=== PATIENT | female | born 1990 | race Caucasian/White ===

== ENCOUNTER 2020-12-19 04:33 | Emergency (ER) | payer OTHER ==
[~2020-12-19] VITALS: Ht 154.9 cm; Wt 58.2 kg
[2020-12-19] MEDS ORDERED: ISOVUE-370 76% 100ML VIAL As Ordered ONE (04:59)
[2020-12-19] MEDS ORDERED: ONDANSETRON 4MG/2ML VIAL IV ONE (05:05)
[2020-12-19] MEDS ORDERED: MORPHINE 4 MG/ML 1ML VIAL/SYRINGE (J2270) IV ONE (05:05)
[2020-12-19 05:40] LABS: BASO % 0.2 % (0.0-1.0); EOS % 0.2 % (0.0-3.0); HEMATOCRIT 41.9 % (36.0-47.0); HEMOGLOBIN 13.8 g/dl (12.0-15.5); LYMPH # 2.3 10^3/uL (1.5-5.0); LYMPH % 17.5 % (24.0-44.0); MEAN CORPUSCULAR HEMOGLOBIN 31.2 pg (27.0-33.0); MEAN CORPUSCULAR HGB CONC 32.9 g/dl (32.0-36.5); MEAN CORPUSCULAR VOLUME 94.6 fl (80.0-96.0); MONO # 0.9 10^3/uL (0.0-0.8); MONO % 6.4 % (2.0-8.0); NEUTROPHILS % 75.4 % (36.0-66.0); PLATELET COUNT, AUTOMATED 196 10^3/uL (150-450); RED BLOOD COUNT 4.43 10^6/uL (4.00-5.40); WHITE BLOOD COUNT 13.2 10^3/uL (4.0-10.0)
[2020-12-19 06:04] LABS: ALT/SGPT 19 U/L (12-78); BILIRUBIN,DIRECT < 0.1 MG/DL (0.0-0.2); BILIRUBIN,TOTAL 0.3 MG/DL (0.2-1.0); LIPASE 49 U/L (73-393); TOTAL PROTEIN 7.3 GM/DL (6.4-8.2)
[2020-12-19] MEDS ORDERED: SIMETHICONE 80MG CHEW TAB PO ONE (06:25)
[2020-12-19 06:43] LABS: RSV AMPLIFICATION NEGATIVE (NEGATIVE)
--- NOTE | 2020-12-19 08:03 | REPVR ---
PROCEDURE INFORMATION: Exam: CT Abdomen And Pelvis With Contrast Exam date and time: 12/19/2020 4:53 AM Age: 30 years old Clinical indication: Abdominal pain; Generalized; Prior surgery; Surgery date: 3-7 days post-operative; Surgery type: Lap; Additional info: Recent ex lap, generalized abd pain, eval for perf TECHNIQUE: Imaging protocol: Computed tomography of the abdomen and pelvis with contrast. Radiation optimization: All CT scans at this facility use at least one of these dose optimization techniques: automated exposure control; mA and/or kV adjustment per patient size (includes targeted exams where dose is matched to clinical indication); or iterative reconstruction. Contrast material: ISO; Contrast volume: 100 ml; Contrast route: INTRAVENOUS (IV); COMPARISON: No relevant prior studies available. FINDINGS: Lungs: The visualized lung bases demonstrate mild dependent atelectasis. Liver: Normal. No mass. Gallbladder and bile ducts: No gallstones are evident, but ultrasound would be more sensitive. No gross biliary ductal dilatation. Pancreas: Normal. No ductal dilation. Spleen: Normal. No splenomegaly. Adrenal glands: Normal. No mass. Kidneys and ureters: Normal. No hydronephrosis. Stomach and bowel: The unopacified small bowel is not significantly distended to suggest obstruction. There is probably mild wall thickening of the rectosigmoid. The large bowel is otherwise grossly unremarkable in appearance. Appendix: There appear to be surgical sutures associated with prior appendectomy. Intraperitoneal space: There is small pneumoperitoneum about much of the abdomen and pelvis. Small free fluid is present in the pelvis. No walled-off collection to suggest abscess is evident. Vasculature: Unremarkable. No abdominal aortic aneurysm. Lymph nodes: Unremarkable. No enlarged lymph nodes. Urinary bladder: Unremarkable. Reproductive: No gross adnexal abnormality is apparent, but ultrasound would be more appropriate in this regard. Bones/joints: Degenerative changes involve the spine. Soft tissues: There is gas in the soft tissues of the left anterior abdominal and pelvic wall, including the subcutaneous soft tissues and between the musculature. A small fat containing umbilical hernia is present. IMPRESSION: 1. Recently postoperative abdomen with small pneumoperitoneum about much of the abdomen and pelvis, small fluid in the pelvis, and gas in the soft tissues of the left anterior abdominal and pelvic wall. Pneumoperitoneum may be residual from the surgery given the time frame, and new perforation would be difficult to evaluate for in this setting. Correlation regarding indication for surgery would be of benefit. 2. Probable mild wall thickening of the rectosigmoid, suggesting a nonspecific proctocolitis. Electronically signed by: Kemar Scott On 12/19/2020 08:03:01 AM
[2020-12-19] MEDS ORDERED: SIME180C25 PO (08:36)
[2020-12-19 08:50] VITALS: BP 95/60
--- NOTE | 2020-12-19 15:06 | ECGEPIP ---
[facility] [place] - ED Test Date: 2020-12-19 Pat Name: BARON SUN Department: Room: - Gender: Female Key Cutter: HARINI : 1990 Requested By: JUANCARLOS Michele Order Number: [id number] Reading MD: Bernardino Houston Measurements Intervals [place] Rate: 56 P: 33 DC: 112 QRS: 60 QRSD: 84 T: 52 QT: 404 QTc: 389 Interpretive Statements Sinus bradycardia NSTTW ABNORMALITY(S) NO PRIORS FOR COMPARISON Electronically Signed on 12-19-2020 15:06:22 EDT by Bernardino Houston
== END 2020-12-19 08:53 | disposition home or self-care (01) ==
LOC: M ED 04:33
DX: M25.511 Pain in right shoulder (principal); Z98.890 Other specified postprocedural states; F33.9 Major depressive disorder, recurrent, unspecified; F41.9 Anxiety disorder, unspecified; Z88.8 Allergy status to other drugs, medicaments and biological substances; Z77.098 Contact with and (suspected) exposure to other hazardous, chiefly nonmedicinal, chemicals; F12.20 Cannabis dependence, uncomplicated
CPT/HCPCS: 74177; 80047; 80076; 83690; 84702; 85025; 87631; 93005; 93041; 96374; 96375; 99285; J2270; J2405; Q9967

== ENCOUNTER 2021-10-25 09:50 | Outpatient (CLI) | payer OTHER ==
[~2021-10-25] VITALS: Ht 157.5 cm; Wt 67.6 kg
[~2021-10-25 09:50] MED LIST: SIME180C25 PO
[2021-10-25] MEDS ORDERED: PRENTAB9 PO (10:09)
[2021-10-25] MEDS ORDERED: VITA100093 PO (10:09)
[2021-10-25] MEDS ORDERED: HOME MED LIST COMPLETE! XX SCH (10:10)
[2021-10-25 11:02] VITALS: BP 109/64
[2021-10-25 12:25] VITALS: BP 100/53
[2021-10-25] MEDS ORDERED: CEPH500T PO (12:36)
== END 2021-10-25 12:37 | disposition home or self-care (01) ==
LOC: M LDO 09:50
PROVIDERS: ATTEND Specialist
DX: O26.892 Other specified pregnancy related conditions, second trimester (principal); R10.2 Pelvic and perineal pain; O23.42 Unspecified infection of urinary tract in pregnancy, second trimester; Z98.870 Personal history of in utero procedure during pregnancy; Z3A.27 27 weeks gestation of pregnancy
CPT/HCPCS: 59025; 81001; 87088; 87186; 87426; G0378; G0463

== ENCOUNTER 2021-11-17 09:17 | Emergency (ER) | payer OTHER ==
[~2021-11-17] VITALS: Ht 154.9 cm; Wt 67.3 kg
[~2021-11-17 09:17] MED LIST changes: +CEPH500T PO; +PRENTAB9 PO; +VITA100093 PO
[2021-11-17] MEDS ORDERED: ACET-683 PO (09:31)
[2021-11-17 10:28] LABS: HEMOGLOBIN 10.7 g/dl (12.0-15.5); MEAN CORPUSCULAR HEMOGLOBIN 33.1 pg (27.0-33.0); MEAN CORPUSCULAR HGB CONC 34.5 g/dl (32.0-36.5); PLATELET COUNT, AUTOMATED 130 10^3/uL (150-450); RED BLOOD COUNT 3.23 10^6/uL (4.00-5.40); WHITE BLOOD COUNT 4.9 10^3/uL (4.0-10.0)
[2021-11-17 10:48] LABS: BLOOD UREA NITROGEN 7 MG/DL (7-18); CALCIUM LEVEL 8.7 MG/DL (8.5-10.1); CARBON DIOXIDE LEVEL 20 MEQ/L (21-32); CHLORIDE LEVEL 110 MEQ/L (98-107); CREATININE FOR GFR 0.54 MG/DL (0.55-1.30); GLOMERULAR FILTRATION RATE > 60.0 (>60); GLUCOSE, FASTING 77 MG/DL (70-100); SODIUM LEVEL 140 MEQ/L (136-145)
[2021-11-17] MEDS ORDERED: NIRM1TAB PO (12:56)
[2021-11-17 13:16] VITALS: BP 100/60
== END 2021-11-17 13:19 | disposition home or self-care (01) ==
LOC: M ED 09:17
DX: O98.513 Other viral diseases complicating pregnancy, third trimester (principal); U07.1 COVID-19; Z3A.30 30 weeks gestation of pregnancy; Z88.6 Allergy status to analgesic agent; Z88.8 Allergy status to other drugs, medicaments and biological substances; Z79.899 Other long term (current) drug therapy

== ENCOUNTER 2021-12-17 08:19 | Emergency (ER) | payer OTHER ==
[~2021-12-17] VITALS: Ht 154.9 cm; Wt 70.1 kg
[2021-12-17 08:19] VITALS: BP 111/63
[~2021-12-17 08:19] MED LIST changes: +ACET-683 PO; +NIRM1TAB PO
== END 2021-12-17 08:55 | disposition left against medical advice (07) ==
LOC: M ED 08:19
DX: Z53.21 Procedure and treatment not carried out due to patient leaving prior to being seen by health care provider (principal)

== ENCOUNTER 2021-12-17 08:59 | Outpatient (CLI) | payer OTHER ==
[~2021-12-17] VITALS: Ht 162.6 cm; Wt 69.0 kg
[2021-12-17 09:25] VITALS: BP 101/66
[2021-12-17] MEDS ORDERED: HOME MED LIST COMPLETE! XX SCH (11:30)
[2021-12-17 12:11] VITALS: BP 103/59
[2021-12-17] MEDS ORDERED: PIPERACILLIN/TAZOBACTAM SOD 4.5 GM in D5W MINI-BAG PLUS 50 ML IV ONE (13:00)
[2021-12-17] MEDS ORDERED: LR 1,000 ML IV ONE (13:00)
== END 2021-12-17 15:30 | disposition home or self-care (01) ==
LOC: M LDO 08:59
PROVIDERS: ATTEND Obstetrics & Gynecology
DX: O23.43 Unspecified infection of urinary tract in pregnancy, third trimester (principal); Z3A.34 34 weeks gestation of pregnancy; Z88.6 Allergy status to analgesic agent; Z88.8 Allergy status to other drugs, medicaments and biological substances
CPT/HCPCS: 59025; 81001; 87088; 87186; G0463; J2543

== ENCOUNTER → 2022-01-10 | Outpatient (CLI) | payer OTHER ==
[~2022-01-10] MED LIST changes: +ACET500P3 PO
== END ==
LOC: M RAD 09:13
PROVIDERS: ATTEND Registered Nurse
DX: O36.8330 Maternal care for abnormalities of the fetal heart rate or rhythm, third trimester, not applicable or unspecified (principal); Z3A.38 38 weeks gestation of pregnancy

== ENCOUNTER 2022-01-13 13:57 | Outpatient (CLI) | payer OTHER ==
[~2022-01-13] VITALS: Ht 154.9 cm; Wt 72.3 kg
[~2022-01-13 13:57] MED LIST changes: -ACET500P3 PO
[2022-01-13 14:12] VITALS: BP 104/70
[2022-01-13 14:24] LABS: BILIRUBIN, URINE MANUAL NEGATIVE (NEGATIVE); GLUCOSE, URINE (UA) MANUAL NEGATIVE (NEGATIVE); KETONE, URINE MANUAL NEGATIVE (NEGATIVE); UROBILINOGEN, URINE MANUAL NORMAL (NORMAL)
[2022-01-13 14:27] LABS: HEMATOCRIT 31.4 % (36.0-47.0); HEMOGLOBIN 10.8 g/dl (12.0-15.5); MEAN CORPUSCULAR HEMOGLOBIN 33.2 pg (27.0-33.0); MEAN CORPUSCULAR HGB CONC 34.4 g/dl (32.0-36.5); MEAN CORPUSCULAR VOLUME 96.6 fl (80.0-96.0); PLATELET COUNT, AUTOMATED 190 10^3/uL (150-450); RED BLOOD COUNT 3.25 10^6/uL (4.00-5.40)
[2022-01-13] MEDS ORDERED: ACET500P3 PO (14:29)
[2022-01-13 14:30] LABS: BACTERIA, URINE MOD AMOUNT; HYALINE CAST, URINE NONE SEEN /lpf (0-1); RBC, URINE 0-1 /hpf (0-3); SQUAMOUS EPITHELIAL CELL URINE LARGE AMOUNT /hpf (SMALL AMT)
[2022-01-13] MEDS ORDERED: HOME MED LIST COMPLETE! XX SCH (14:30)
[2022-01-13 14:31] LABS: MUCUS, URINE SMALL AMOUNT (NEGATIVE)
[2022-01-13] MEDS ORDERED: diphenhydrAMINE 25MG CAP PO ONE (15:00)
[2022-01-13] MEDS ORDERED: METOCLOPRAMIDE 10MG TAB PO ONE (15:00)
[2022-01-13 15:04] VITALS: BP 114/69
[2022-01-13 15:05] VITALS: BP 103/63
[2022-01-13 15:05] LABS: CREATININE,RANDOM URINE 20.9 MG/DL; TOTAL PROTEIN,RANDOM URINE 10.2 MG/DL (0.0-12.0)
[2022-01-13 15:06] VITALS: BP 105/68
[2022-01-13 15:07] LABS: ALBUMIN 2.7 GM/DL (3.2-5.2); ALT/SGPT 23 U/L (12-78); BILIRUBIN,TOTAL 0.3 MG/DL (0.2-1.0); BLOOD UREA NITROGEN 8 MG/DL (7-18); CALCIUM LEVEL 8.9 MG/DL (8.5-10.1); CARBON DIOXIDE LEVEL 24 MEQ/L (21-32); CHLORIDE LEVEL 108 MEQ/L (98-107); CREATININE FOR GFR 0.63 MG/DL (0.55-1.30); GLOMERULAR FILTRATION RATE > 60.0 (>60); GLUCOSE, FASTING 92 MG/DL (70-100); LDH LACTATE DEHYDROGENASE 173 U/L (84-246); SODIUM LEVEL 138 MEQ/L (136-145); TOTAL PROTEIN 6.6 GM/DL (6.4-8.2)
== END 2022-01-13 15:55 | disposition home or self-care (01) ==
LOC: M LDO 13:57
PROVIDERS: ATTEND Obstetrics & Gynecology
DX: O26.893 Other specified pregnancy related conditions, third trimester (principal); R51.9 Headache, unspecified; Z98.870 Personal history of in utero procedure during pregnancy; Z3A.38 38 weeks gestation of pregnancy; Z86.16 Personal history of COVID-19
CPT/HCPCS: 36415; 59025; 76815; 80053; 81000; 81015; 82570; 83615; 84156; 85027; 87086; G0463

== ENCOUNTER 2022-01-25 18:19 | Inpatient (IN) | payer OTHER ==
[~2022-01-25] VITALS: Ht 154.9 cm; Wt 73.2 kg
[~2022-01-25 18:19] MED LIST changes: +ACET500P3 PO
[2022-01-25 18:39] VITALS: BP 100/69
[2022-01-25] MEDS ORDERED: HOME MED LIST COMPLETE! XX SCH (18:45)
[2022-01-25 20:05] VITALS: BP 95/54
[2022-01-25] MEDS ORDERED: OXYTOCIN INJ 10 UNITS/ML VIAL (J2590) IV PRN (20:45)
[2022-01-25] MEDS ORDERED: OXYTOCIN DRIP 30 UNITS in IV 1 EA IV PRN ×4 (20:45)
[2022-01-25] MEDS ORDERED: METHYLERGONOVINE MALEATE 0.2 MG/ML VIAL (J2210) IM PRN (20:45)
[2022-01-25] MEDS ORDERED: LACTATED RINGER'S 1000 ML IV ONE (20:45)
[2022-01-25] MEDS ORDERED: TRANEXAMIC ACID INJection 1,000 MG in NS 100 ML IV PRN (20:45)
[2022-01-25] MEDS ORDERED: miSOPROStol 50MCG 1/2 TABLET PO ONE (20:45)
[2022-01-25 21:16] VITALS: BP 99/58
[2022-01-25 21:29] LABS: HEMATOCRIT 31.7 % (36.0-47.0); HEMOGLOBIN 10.6 g/dl (12.0-15.5); MEAN CORPUSCULAR HEMOGLOBIN 32.5 pg (27.0-33.0); MEAN CORPUSCULAR HGB CONC 33.4 g/dl (32.0-36.5); MEAN CORPUSCULAR VOLUME 97.2 fl (80.0-96.0); PLATELET COUNT, AUTOMATED 204 10^3/uL (150-450); RED BLOOD COUNT 3.26 10^6/uL (4.00-5.40); WHITE BLOOD COUNT 8.9 10^3/uL (4.0-10.0)
[2022-01-25 23:06] VITALS: BP 90/53
[2022-01-26] VITALS (44 sets, daily range): BP systolic 64–133; BP diastolic 38–70
[2022-01-26] MEDS ORDERED: ONDANSETRON 4MG 2ML VIAL IV PRN (03:10)
[2022-01-26] MEDS ORDERED: EPIDURAL/PCA KEYS XX PRN (03:10)
[2022-01-26] MEDS ORDERED: LR 500 ML IV PRN (03:10)
[2022-01-26] MEDS ORDERED: NALOXONE INJ 0.4MG/1ML VIAL (J2310 PER 1MG) IV PRN (03:10)
[2022-01-26] MEDS ORDERED: diphenhydrAMINE 50MG/ML VIAL (J1200) IV PRN (03:10)
[2022-01-26] MEDS: FENTANYL/ROPIVACAINE/NACL BAG 100 ML EPIDURAL SCH ×2 (04:19→14:35)
[2022-01-26] MEDS ORDERED: ACETAMINOPHEN TAB 650MG DOSE (2X325MG) PO PRN (04:50)
[2022-01-26] MEDS: LR 1,000 ML IV SCH ×3 (07:26→14:38)
[2022-01-26] MEDS: ePHEDrine SULFATE 25 MG/5 ML(5MG/ML) SYRINGE IVP PRN ×3 (08:33→21:02)
[2022-01-26] MEDS ORDERED: OXYTOCIN DRIP 30 UNITS in IV 1 EA IV SCH (09:00)
[2022-01-26] MEDS ORDERED: METOCLOPRAMIDE INJ 10MG/2ML VIAL (J2765 PER 1) IV ONE (09:15)
[2022-01-26] MEDS ORDERED: ePHEDrine SULFATE 25 MG/5 ML(5MG/ML) SYRINGE IVP PRN (10:20)
[2022-01-27] VITALS (18 sets, daily range): BP systolic 90–138; BP diastolic 48–66
[2022-01-27] MEDS ORDERED: ceFAZolin SOD 2 GM in IV 1 EA IV ONE ×2
[2022-01-27] MEDS ORDERED: AZITHROMYCIN INJ 500 MG, VIAL MATE ADAPTER 1 EACH in NS 250 ML IV ONE ×3
[2022-01-27] MEDS ORDERED: BICITRA 30ML SOLN UDC PO ONE
[2022-01-27] MEDS ORDERED: OXYTOCIN INJ 10 UNITS/ML VIAL (J2590) As Ordered ONE (00:03)
[2022-01-27] MEDS ORDERED: dexameTHASONE 4 MG/ML 1ML VIAL (J1100 PER 1MG) As Ordered ONE ×2 (00:03→01:08)
[2022-01-27] MEDS ORDERED: ONDANSETRON 4MG 2ML VIAL As Ordered ONE (00:03)
[2022-01-27] MEDS ORDERED: LIDOCAINE 2% W/EPINEPHRINE 20ML VIAL **PRES FREE As Ordered ONE (00:03)
[2022-01-27] MEDS ORDERED: KETOROLAC 60MG 2ML VIAL As Ordered ONE (00:03)
[2022-01-27] MEDS ORDERED: MORPHINE PRES-FREE INJ 10 MG/10 ML VIAL As Ordered ONE (00:04)
[2022-01-27] MEDS ORDERED: METOCLOPRAMIDE INJ 10MG/2ML VIAL (J2765 PER 1) As Ordered ONE (00:53)
[2022-01-27 00:59] LABS: CORD GAS ABE V -5.3; CORD GAS HCO3 V 21.3 MEQ/L; CORD GAS PCO2 V 45.7 mmHg; CORD GAS PH V 7.287 UNITS; CORD GAS PO2 V 28.7 mmHg; CORD GAS SBC V 19.4 MEQ/L; CORD GAS TCO2 V 22.7 MEQ/L
[2022-01-27] MEDS ORDERED: BUPIVACAINE/EPIN 0.25% 30 ML VIAL As Ordered ONE (00:59)
[2022-01-27] MEDS ORDERED: ePHEDrine SULFATE 25 MG/5 ML(5MG/ML) SYRINGE As Ordered ONE (01:03)
[2022-01-27] MEDS ORDERED: diphenhydrAMINE 50MG/ML VIAL (J1200) As Ordered ONE (01:08)
[2022-01-27] MEDS ORDERED: METOCLOPRAMIDE INJ 10MG/2ML VIAL (J2765 PER 1) IV PRN ×2 (01:15→02:35)
[2022-01-27] MEDS ORDERED: SIMETHICONE 80MG CHEW TAB PO PRN (01:15)
[2022-01-27] MEDS ORDERED: RHOGAM 300 MCG (1500 IU) INJ (J2790) IM SCH (01:15)
[2022-01-27] MEDS ORDERED: MOM 30ML SUSPENSION UDC PO PRN (01:15)
[2022-01-27] MEDS ORDERED: oxyCODONE 5MG TAB PO PRN (02:35)
[2022-01-27] MEDS: SLF 3 ML SYR IV SCH ×3 (02:35→18:35)
[2022-01-27] MEDS ORDERED: ONDANSETRON 4MG 2ML VIAL IV PRN (02:35)
[2022-01-27] MEDS ORDERED: diphenhydrAMINE 50MG/ML VIAL (J1200) IV PRN (02:35)
[2022-01-27] MEDS ORDERED: fentaNYL 100 MCG/2 ML INJECTION IV PRN (02:35)
[2022-01-27] MEDS ORDERED: **NOTE PATIENT COMMENT** MISC XX SCH (02:35)
[2022-01-27] MEDS: LR 1,000 ML IV SCH ×2 (02:35→03:05)
[2022-01-27] MEDS ORDERED: NALOXONE INJ 0.4MG/1ML VIAL (J2310 PER 1MG) IV PRN ×2 (02:35)
[2022-01-27] MEDS ORDERED: MORPHINE 2 MG/ML 1ML VIAL IV PRN (02:35)
[2022-01-27] MEDS ORDERED: oxyCODONE 5MG TAB As Ordered ONE (02:39)
[2022-01-27] MEDS: oxyCODONE 5MG TAB PO PRN ×2 (02:40→21:31)
[2022-01-27] MEDS: PRENATAL VITAMINS CHEWABLE TABLET PO SCH (08:36)
[2022-01-27] MEDS: DOCUSATE SODIUM 100MG CAPSULE PO SCH ×2 (08:36→21:31)
[2022-01-27] MEDS: KETOROLAC 30 MG/ML 1ML VIAL IV SCH ×3 (08:37→18:36)
[2022-01-27] MEDS ORDERED: PRENATAL VITAMINS CHEWABLE TABLET PO SCH (09:00)
[2022-01-27] MEDS: VITAMIN D 1,000 INTERNATIONAL UNITS TABLET PO SCH (16:17)
[2022-01-27] MEDS: IBUPROFEN 800 MG TAB PO SCH (23:39)
[2022-01-28] VITALS (7 sets, daily range): BP systolic 89–117; BP diastolic 52–67
[2022-01-28] MEDS: ACETAMINOPHEN 500 MG TAB PO PRN ×2 (02:19→12:38)
[2022-01-28] MEDS: oxyCODONE 5MG TAB PO PRN ×2 (05:22→18:57)
[2022-01-28 06:38] LABS: HEMATOCRIT 25.4 % (36.0-47.0); HEMOGLOBIN 8.2 g/dl (12.0-15.5); MEAN CORPUSCULAR HEMOGLOBIN 32.2 pg (27.0-33.0); MEAN CORPUSCULAR HGB CONC 32.3 g/dl (32.0-36.5); MEAN CORPUSCULAR VOLUME 99.6 fl (80.0-96.0); PLATELET COUNT, AUTOMATED 166 10^3/uL (150-450); RED BLOOD COUNT 2.55 10^6/uL (4.00-5.40); WHITE BLOOD COUNT 9.8 10^3/uL (4.0-10.0)
[2022-01-28] MEDS: VITAMIN D 1,000 INTERNATIONAL UNITS TABLET PO SCH (08:53)
[2022-01-28] MEDS: PRENATAL VITAMINS CHEWABLE TABLET PO SCH (08:53)
[2022-01-28] MEDS: IBUPROFEN 800 MG TAB PO SCH ×2 (08:53→17:07)
[2022-01-28] MEDS: DOCUSATE SODIUM 100MG CAPSULE PO SCH ×2 (08:53→21:25)
[2022-01-29] MEDS: IBUPROFEN 800 MG TAB PO SCH ×2 (00:16→08:07)
[2022-01-29 02:00] VITALS: BP 99/52
[2022-01-29 06:00] VITALS: BP 116/62
[2022-01-29] MEDS: VITAMIN D 1,000 INTERNATIONAL UNITS TABLET PO SCH (08:06)
[2022-01-29] MEDS: DOCUSATE SODIUM 100MG CAPSULE PO SCH (08:06)
[2022-01-29] MEDS: PRENATAL VITAMINS CHEWABLE TABLET PO SCH (08:06)
[2022-01-29] MEDS: oxyCODONE 5MG TAB PO PRN (08:15)
[2022-01-29] MEDS ORDERED: MEASLES,MUMPS,RUBELLA VACCINE INJ (MMR-II) (90707) SC.IMMUN ONE (09:00)
[2022-01-29 10:00] VITALS: BP 120/57
[2022-01-29] MEDS ORDERED: PRENCHW PO (11:03)
[2022-01-29] MEDS ORDERED: IBUP80TA PO (11:03)
[2022-01-29] MEDS ORDERED: COLA100C5 PO (11:03)
[2022-01-29] MEDS ORDERED: OXYC-517 PO (11:03)
== END 2022-01-29 11:44 | disposition home or self-care (01) | DRG 773 ==
LOC: M LDI 18:19 → M OBS 01-27 02:49
PROVIDERS: ADMIT Obstetrics & Gynecology; ATTEND Obstetrics & Gynecology
PROC: 3E033VJ Introduction of Other Hormone into Peripheral Vein, Percutaneous Approach (ICD-10-PCS; 2022-01-25)
PROC: 10D00Z1 Extraction of Products of Conception, Low, Open Approach (ICD-10-PCS; principal; 2022-01-27 00:20)
DX: O76 Abnormality in fetal heart rate and rhythm complicating labor and delivery (principal); Z3A.40 40 weeks gestation of pregnancy; Z37.0 Single live birth

== ENCOUNTER → 2022-03-18 | Outpatient (REF) | payer OTHER ==
[~2022-03-18] MED LIST changes: +COLA100C5 PO; +IBUP80TA PO; +OXYC-517 PO; +PRENCHW PO
== END ==
LOC: M WUC 19:38
PROVIDERS: ATTEND Physician Assistant
DX: R30.0 Dysuria (principal)